=== PATIENT | female | born 1945 | race Caucasian/White ===

== ENCOUNTER 2021-07-18 17:25 | Inpatient (IN) | payer MEDICARE, OTHER ==
[~2021-07-18] VITALS: Ht 157.5 cm; Wt 70.0 kg
[2021-07-18 18:22] LABS: BASOPHIL 0.5 % (0-2); EOSINOPHIL 2.4 % (0-7); HCT 44.7 % (37.0-47.0); HGB 14.4 g/dl (12.5-16.0); LYMPHOCYTE 18.8 % (15-48); MCHC 32.2 g/dL (32.0-36.0); MCV 80.7 fL (78.0-100.0); MONOCYTE 9.1 % (0-12); MPV 11.9 fL (6.0-9.5); NEUTROPHIL 68.9 % (41-80); NRBC 0; PLT 212 K/uL (150-400); RBC 5.54 M/uL (4.20-5.40); RDW 13.6 % (11.5-14.0); WBC 8.8 K/uL (4.0-10.5)
[2021-07-18 18:49] LABS: INR 1.31 (0.9-1.2); PROTHROMBIN TIME 15.6 SECONDS (11.8-13.4); PTT 28.1 SECONDS (24.4-34.7)
[2021-07-18 18:51] LABS: ALBUMIN 3.1 g/dL (3.4-5.0); BILIRUBIN - TOTAL 0.8 mg/dL (0.2-1.0); BUN/CREAT RATIO (CALC) 25.9 RATIO; CREATININE 0.58 mg/dL (0.51-0.95); GLOBULIN (CALCULATION) 3.5 g/dL; POTASSIUM 3.7 mmol/L (3.5-5.1); TOTAL PROTEIN 6.6 g/dL (6.4-8.2)
[2021-07-18 19:01] LABS: LACTIC ACID 1.2 mmol/L (0.4-1.9)
[2021-07-18 19:04] LABS: PRO-BNP 501 pg/mL (<450)
[2021-07-18 19:25] LABS: C-REACTIVE PROTEIN 3.4 mg/dL (<=0.90); MAGNESIUM 1.4 mg/dL (1.8-2.4)
[2021-07-18 20:15] LABS: CLARITY CLEAR (CLEAR); COLOR YELLOW (YELLOW); PROTEIN 1+ mg/dL (NEGATIVE); SPECIFIC GRAVITY > 1.030 (1.001-1.030); pH 5.5 (5.0-9.0)
[2021-07-18 20:16] LABS: BILIRUBIN NEGATIVE (NEGATIVE); BLOOD 3+ Ery/uL (NEGATIVE); GLUCOSE (U) NORMAL (NORMAL); LEUKOCYTES 1+ Leu/uL (NEGATIVE); NITRITE POSITIVE (NEGATIVE); UROBILINOGEN 0.2 mg/dL (0.2-1.0)
[2021-07-18 20:17] LABS: BACTERIA 2+; URINARY RBC RARE
[2021-07-19 05:23] LABS: BASOPHIL 0.7 % (0-2); EOSINOPHIL 2.5 % (0-7); HCT 39.2 % (37.0-47.0); HGB 12.6 g/dl (12.5-16.0); MCH 25.8 pg (25.0-31.0); MCHC 32.1 g/dL (32.0-36.0); MCV 80.3 fL (78.0-100.0); MONOCYTE 8.6 % (0-12); MPV 11.2 fL (6.0-9.5); NRBC 0; PLT 198 K/uL (150-400); RBC 4.88 M/uL (4.20-5.40); RDW 13.6 % (11.5-14.0); WBC 9.9 K/uL (4.0-10.5)
[2021-07-19 05:53] LABS: ALBUMIN 2.6 g/dL (3.4-5.0); ALKALINE PHOSHATASE 93 U/L (46-116); ALT 8 U/L (14-59); AST 11 U/L (15-37); BILIRUBIN - TOTAL 0.5 mg/dL (0.2-1.0); BUN 12 mg/dL (7-18); BUN/CREAT RATIO (CALC) 18.8 RATIO; CHLORIDE 106 mmol/L (98-107); CO2 (BICARBONATE) 23 mmol/L (21-32); CREATININE 0.64 mg/dL (0.51-0.95); GLOBULIN (CALCULATION) 3.2 g/dL; GLUCOSE 175 mg/dL (74-106); MAGNESIUM 1.6 mg/dL (1.8-2.4); POTASSIUM 3.5 mmol/L (3.5-5.1); TOTAL PROTEIN 5.8 g/dL (6.4-8.2)
[2021-07-19 10:26] LABS: FT4 (FREE T4) 2.3 ng/dL (0.76-1.46)
[2021-07-19] MEDS ORDERED: TRAMADOL HCL50 MG PO (15:00)
[2021-07-19] MEDS ORDERED: TENORMIN50 MG PO (15:07)
[2021-07-19] MEDS ORDERED: NOVOLOG VI100 UNIT/1 SC (15:09)
[2021-07-19] MEDS ORDERED: BASAGLAR K100 UNIT/1 SC (15:10)
[2021-07-19] MEDS ORDERED: LIPITOR40 MG PO (15:10)
[2021-07-19] MEDS ORDERED: 24HOUR ALLERGY10 MG PO (15:11)
[2021-07-19] MEDS ORDERED: LASIX10 MG/ML PO (15:12)
[2021-07-19] MEDS ORDERED: POTASSIUM20 MEQ/11 PO (15:12)
[2021-07-19] MEDS ORDERED: COZAAR100 MG PO (15:13)
[2021-07-19] MEDS ORDERED: ROXIFOL-D TA500 UNIT PO (15:14)
[2021-07-20 06:15] LABS: BASOPHIL 0.8 % (0-2); EOSINOPHIL 4.7 % (0-7); HCT 41.6 % (37.0-47.0); HGB 13.5 g/dl (12.5-16.0); LYMPHOCYTE 17.6 % (15-48); MCH 25.8 pg (25.0-31.0); MCHC 32.5 g/dL (32.0-36.0); MCV 79.4 fL (78.0-100.0); NEUTROPHIL 68.7 % (41-80); NRBC 0; PLT 230 K/uL (150-400); RBC 5.24 M/uL (4.20-5.40); RDW 13.4 % (11.5-14.0); WBC 9.1 K/uL (4.0-10.5)
[2021-07-20 06:35] LABS: BUN/CREAT RATIO (CALC) 17.7 RATIO; CREATININE 0.62 mg/dL (0.51-0.95); MAGNESIUM 1.4 mg/dL (1.8-2.4); POTASSIUM 3.3 mmol/L (3.5-5.1)
[2021-07-21 06:22] LABS: BASOPHIL 1.3 % (0-2); EOSINOPHIL 4.6 % (0-7); HCT 39.1 % (37.0-47.0); LYMPHOCYTE 16.5 % (15-48); MCHC 30.7 g/dL (32.0-36.0); MONOCYTE 8.9 % (0-12); MPV 11.2 fL (6.0-9.5); NEUTROPHIL 68.4 % (41-80); NRBC 0; PLT 193 K/uL (150-400); RBC 4.61 M/uL (4.20-5.40); RDW 13.7 % (11.5-14.0); WBC 6.3 K/uL (4.0-10.5)
[2021-07-21 06:23] LABS: MCV 84.8 fL (78.0-100.0)
[2021-07-21 06:54] LABS: BUN 17 mg/dL (7-18); BUN/CREAT RATIO (CALC) 23.9 RATIO; CHLORIDE 108 mmol/L (98-107); CO2 (BICARBONATE) 22 mmol/L (21-32); CREATININE 0.71 mg/dL (0.51-0.95); GLUCOSE 202 mg/dL (74-106); MAGNESIUM 1.9 mg/dL (1.8-2.4); POTASSIUM 4.1 mmol/L (3.5-5.1)
[2021-07-21 15:11] LABS: THYROGLOBULIN ANTIBODY <1.0 IU/mL (0.0-0.9); THYROID PEROXIDASE (TPO) AB <8 IU/mL (0-34)
--- NOTE | 2021-07-21 15:41 | NUR ---
07/21/21 Ms. Orantes was living alone prior to admission. She reports that her sister will be staying with her at discharge. She has a rw, 3in1, and s. chair. Ms. Orantes is not interested in HH because she has several nieces who are RNs and will check in on her. No discharge planning needs are anticipated.
[2021-07-23 06:06] LABS: BASOPHIL 0.7 % (0-2); EOSINOPHIL 2.5 % (0-7); HCT 39.1 % (37.0-47.0); HGB 12.4 g/dl (12.5-16.0); LYMPHOCYTE 16.3 % (15-48); MCH 25.6 pg (25.0-31.0); MCHC 31.7 g/dL (32.0-36.0); MONOCYTE 8.5 % (0-12); MPV 11.1 fL (6.0-9.5); NEUTROPHIL 71.6 % (41-80); NRBC 0; PLT 251 K/uL (150-400); RBC 4.85 M/uL (4.20-5.40); RDW 13.9 % (11.5-14.0); WBC 8.4 K/uL (4.0-10.5)
[2021-07-23 06:15] LABS: MCV 80.6 fL (78.0-100.0)
[2021-07-23 06:28] LABS: BUN/CREAT RATIO (CALC) 29.7 RATIO; CREATININE 0.64 mg/dL (0.51-0.95); MAGNESIUM 1.5 mg/dL (1.8-2.4); POTASSIUM 3.6 mmol/L (3.5-5.1)
[2021-07-23] MEDS ORDERED: ELIQUIS5 MG PO (10:36)
[2021-07-23] MEDS ORDERED: TAPAZOLE10 MG PO (12:38)
--- NOTE | 2021-07-23 13:01 | NUR ---
07/23/21 A referral was made to [facility] for nursing per patient choice.
== END 2021-07-23 13:30 | disposition home health service (06) | DRG 643 ==
LOC: FER 17:25 → FTCU 22:02
PROVIDERS: Emergency Medicine; Internal Medicine; Nurse Practitioner; Nurse Practitioner Family; ADMIT Family Medicine
DX: E05.90 Thyrotoxicosis, unspecified without thyrotoxic crisis or storm (principal); G93.41 Metabolic encephalopathy; I82.401 Acute embolism and thrombosis of unspecified deep veins of right lower extremity; N30.00 Acute cystitis without hematuria; I48.0 Paroxysmal atrial fibrillation; Z20.822 Contact with and (suspected) exposure to COVID-19; J43.2 Centrilobular emphysema; I10 Essential (primary) hypertension; F17.210 Nicotine dependence, cigarettes, uncomplicated; E11.40 Type 2 diabetes mellitus with diabetic neuropathy, unspecified; E87.6 Hypokalemia; E83.42 Hypomagnesemia; Z88.0 Allergy status to penicillin; Z88.2 Allergy status to sulfonamides
CPT/HCPCS: 36415; 36600; 70450; 71045; 71275; 76536; 78012; 80048; 80053; 81001; 82550; 82728; 82803; 82962; 83605; 83615; 83735; 83880; 84145; 84432; 84439; 84443; 84479; 84481; 84484; 85025; 85610; 85730; 86140; 86376; 87040; 87088; 93005; A9516; J0696; J1170; J2270; J2405; J3360; J3475; J3490; J7030; Q9967; U0002